=== PATIENT | male | born 1935 | race Caucasian/White ===

== ENCOUNTER 2017-03-24 18:29 | Emergency (ER) | payer MEDICARE, BC ==
--- NOTE | 2017-03-24 19:03 | Emergency Department Record ---
History of Present Illness - General Chief complaint: Weakness Stated complaint: TIA ? Time Seen by Provider: 03/24/17 18:35 Source: Patient, Family, RN notes reviewed Mode of Arrival: Wheelchair - History of Present Illness Initial comments: not cooperative and would not get out of the car and family worried could be a CVA. PMH dementia and atrial fib. Moving all four extremities to commands and neuro exam is neg except only oriented to person. Onset/Timin -: Hour(s) Location: Generalized Consistency: Constant Improves with: None Worsens with: None Associated Symptoms: Denies other symptoms - Related Data Home Medications Medication Instructions Recorded Confirmed Last Taken Lovastatin 40 mg PO DAILY 03/04/16 03/24/17 03/31/16 Digoxin 125 mcg PO DAILY 03/10/16 03/24/17 03/31/16 Docusate Sodium [Colace] 100 mg PO ASDIR 03/24/17 03/24/17 Unknown Esomeprazole Magnesium [Nexium] 40 mg PO DAILY 03/24/17 03/24/17 Unknown Memantine HCl [Namenda Xr] 28 mg PO QHS 03/24/17 03/24/17 Unknown Previous Rx's Medication Instructions Recorded Apixaban [Eliquis] 5 mg PO BID #60 tablet 03/31/16 Diltiazem HCl [Cardizem Cd] 180 mg PO DAILY #30 cap 03/31/16 Levothyroxine Sodium [Synthroid] 75 mcg PO DAILYTHY #30 tablet 03/31/16 Sertraline HCl [Zoloft] 50 mg PO DAILY #30 tablet 03/31/16 Sulfamethoxazole/Trimethoprim 1 each PO BID #20 tablet 03/24/17 [Bactrim Ds Tablet] Sulfamethoxazole/Trimethoprim 20 ml PO BID #400 ml 03/24/17 [Bactrim Susp] Allergies Allergy/AdvReac Type Severity Reaction Status Date / Time No Known Drug Allergies Allergy Verified 03/04/16 13:51 Travel Screening - Travel/Exposure Within Last 30 Days Have you traveled within the last 30 days?: No Review of Systems Reviewed: No additional complaints except as noted below Constitutional: Reports: As per HPI. Denies: Chills, Fever, Malaise, Night sweats, Weakness, Weight change Eyes: Reports: As per HPI. Denies: Eye discharge, Eye pain, Photophobia, Vision change ENT: Reports: As per HPI. Denies: Congestion, Dental pain, Ear pain, Epistaxis , Hearing loss, Throat pain Respiratory: Reports: As per HPI. Denies: Cough, Dyspnea, Hemoptysis, Stridor, Wheezes Cardiovascular: Reports: As per HPI. Denies: Arrhythmia, Chest pain, Dyspnea on exertion, Edema, Murmurs, Orthopnea, Palpitations, Paroxysmal nocturnal dyspnea, Rheumatic Fever, Syncope Endocrine: Reports: As per HPI. Denies: Fatigue, Heat or cold intolerance, Polydipsia, Polyuria Gastrointestinal: Reports: As per HPI. Denies: Abdominal pain, Constipation, Diarrhea, Hematemesis, Hematochezia, Melena, Nausea, Vomiting Genitourinary: Reports: As per HPI. Denies: Dysuria, Frequency, Hematuria, Incontinence, Retention, Testicular pain, Testicular mass, Urgency Musculoskeletal: Reports: As per HPI. Denies: Arthralgia, Back pain, Gout, Joint swelling, Myalgia, Neck pain Skin: Reports: As per HPI. Denies: Bruising, Change in color, Change in hair/ nails, Lesions, Pruritus, Rash Neurological: Reports: As per HPI. Denies: Abnormal gait, Confusion, Headache, Numbness, Paresthesias, Seizure, Tingling, Tremors, Vertigo, Weakness Psychiatric: Reports: As per HPI. Denies: Anxiety, Auditory hallucinations, Depression, Homicidal thoughts, Suicidal thoughts, Visual hallucinations Hematological/Lymphatic: Reports: As per HPI. Denies: Anemia, Blood Clots, Easy bleeding, Easy bruising, Swollen glands Past Medical History - SOCIAL HISTORY Smoking Status: Former smoker Alcohol Use: None Drug Use: None - RESPIRATORY Hx Respiratory Disorders: No - CARDIOVASCULAR Hx Cardio Disorders: Yes Hx Irregular Heartbeat: Yes (A-fib) Comment:: high cholesterol - NEURO Hx Neuro Disorders: Yes Hx Dementia: Yes (recently in past 6 months) - GI Hx GI Disorders: Yes Hx Reflux: Yes (Nexium helps) - Hx Genitourinary Disorders: Yes Hx Bladder Problem: Yes (occasional incont) - ENDOCRINE Hx Endocrine Disorders: Yes Hx Diabetes: Yes (borderline) - MUSCULOSKELETAL Hx Musculoskeletal Disorders: No Hx Arthritis: No - PSYCH Hx Psych Problems: Yes Hx Depression: Yes - HEMATOLOGY/ONCOLOGY Hx Hematology/Oncology Disorders: No Comment:: on Eliquis since TIA in February 2016 Family Medical History Any Significant Family History?: Yes Hx Cancer: Mother Physical Exam - General General Appearance: Alert, Oriented x3, Cooperative, No acute distress - Head Head exam: Normal inspection - Eye Eye exam: Normal appearance, PERRL Pupils: Normal accommodation - ENT ENT exam: Normal exam, Mucous membranes moist, Normal external ear exam, Normal orophraynx, TM's normal bilaterally Ear exam: Normal external inspection. negative: External canal tenderness Nasal Exam: Normal inspection. negative: Discharge, Sinus tenderness Mouth exam: Normal external inspection, Tongue normal Teeth exam: Normal inspection. negative: Dental caries Throat exam: Normal inspection. negative: Tonsillar erythema, Tonsillar exudate - Neck Neck exam: Normal inspection, Full ROM. negative: Tenderness - Respiratory Respiratory exam: Normal lung sounds bilaterally. negative: Respiratory distress - Cardiovascular Cardiovascular Exam: Regular rate, Normal rhythm, Normal heart sounds - GI/Abdominal GI/Abdominal exam: Soft, Normal bowel sounds. negative: Tenderness - Rectal Rectal exam: Deferred - exam: Deferred - Extremities Extremities exam: Normal inspection, Full ROM, Normal capillary refill. negative: Tenderness - Back Back exam: Reports: Normal inspection, Full ROM. Denies: Muscle spasm, Rash noted, Tenderness - Neurological Neurological exam: Alert, Normal gait, Oriented X3, Reflexes normal - Psychiatric Psychiatric exam: Normal affect, Normal mood - Skin Skin exam: Dry, Intact, Normal color, Warm Course Vital Signs 03/24/17 18:36 Temperature 97.4 F L Pulse Rate 111 H Respiratory 20 Rate Blood Pressure 126/81 Pulse Ox 96 - Reevaluation(s) Reevaluation #1: patient walking around without problems. 03/24/17 19:36 Medical Decision Making - Data Complexity MDM Data: Labs Ordered and/or Reviewed, X-Ray Ordered and/or Reviewed (CT Head no acute changes), EKG Ordered and/or Reviewed (Atrila fibrillation , no acute changes) - Lab Data Result diagrams: 03/24/17 18:50 03/24/17 18:50 Disposition Clinical Impression: Altered level of consciousness, Dehydration Dementia Qualifiers: Dementia type: Alzheimer's disease Alzheimer's disease onset: late-onset Dementia behavioral disturbance: without behavioral disturbance Qualified Code(s ): G30.1 - Alzheimer's disease with late onset UTI (urinary tract infection) Qualifiers: Urinary tract infection type: acute cystitis Hematuria presence: without hematuria Qualified Code(s): N30.00 - Acute cystitis without hematuria Disposition: Home, Self-Care Condition: (1) Good Instructions: Dehydration (ED) Additional Instructions: follow up with family in one week sooner if worse Prescriptions: Sulfamethoxazole/Trimethoprim [Bactrim Ds Tablet] 1 each PO BID #20 tablet Sulfamethoxazole/Trimethoprim [Bactrim Susp] 20 ml PO BID #400 ml Forms: Patient Portal Access Time of Disposition: 20:18 Quality - Quality Measures Quality Measures: N/A - Blood Pressure Screening Does Patient Have Any of the Following: No Blood Pressure Classification: Pre-Hypertensive BP Reading Systolic Measurement: 126 Diastolic Measurement: 81 Screening for High Blood Pressure: < Pre-Hypertensive BP, F/U Documented > [ G8950] Pre-Hypertensive Follow-up Interventions: Referral to alternative/primary care provider.
[2017-03-24 19:11] LABS: BASO % 0.2 % (0-6); EOS % 0.9 % (0-6); GRAN % 70.8 % (47-80); HEMATOCRIT 40.5 % (42.0-52.0); HEMOGLOBIN 13.7 gm/dl (14.0-18.0); LYMPH % 19.8 % (16-45); MEAN CELL VOLUME 91.4 fl (81-97); MEAN CORPUSCULAR HEMOGLOBIN 30.9 pg (27-33); MEAN CORPUSCULAR HGB CONC 33.8 g/dl (32-36); MEAN PLATELET VOLUME 9.5 fl (7.4-10.4); MONO % 8.3 % (0-9); PLATELET COUNT 195 K/uL (130-400); RED BLOOD COUNT 4.43 M/uL (4.40-5.70); RED CELL DISTRIBUTION WIDTH 13.4 % (11.5-14.5); WHITE BLOOD COUNT W/O DIFF 8.7 K/uL (4.2-12.2)
[2017-03-24 19:22] LABS: ALBUMIN 4.3 gm/dL (3.5-5.0); ALKALINE PHOSPHATASE 55 U/L (38-126); ALT/SGPT 39 U/L (21-72); ANION GAP 8.2 (7-16); AST/SGOT 20 U/L (17-59); BILIRUBIN,TOTAL 1.17 mg/dL (0.2-1.3); BLOOD UREA NITROGEN 15 mg/dL (9-20); CARBON DIOXIDE 25.8 mmol/L (22-30); EST GLOMERULAR FILTRATION RATE > 60 ml/min; GLUCOSE,RANDOM 217 mg/dL (70-110); TOTAL PROTEIN 6.9 gm/dL (6.3-8.2)
[2017-03-24 19:23] LABS: ACETAMINOPHEN < 10.0 ug/mL (10.0-30.0); SALICYLATE < 1.0 mg/dL (2.8-20.0)
[2017-03-24 19:31] LABS: URINE APPEARANCE CLEAR; URINE BILIRUBIN SMALL (NEGATIVE); URINE BLOOD SMALL (NEGATIVE); URINE COLOR ORANGE; URINE GLUCOSE (UA) NEGATIVE (NEGATIVE); URINE KETONE TRACE (NEGATIVE); URINE LEUKOCYTE ESTERASE MODERATE (NEGATIVE); URINE NITRITE NEGATIVE (NEGATIVE); URINE PROTEIN TRACE (NEGATIVE)
[2017-03-24] MEDS: 0.9 % SODIUM CHLORIDE 1000ML 1,000 ML IV ONE (19:35)
[2017-03-24 19:37] LABS: AMPHETAMINE SCREEN URINE NOT DETECTED; BARBITURATE SCREEN URINE NOT DETECTED; BENZODIAZEPINE SCREEN URINE NOT DETECTED; COCAINE SCREEN URINE NOT DETECTED; METHADONE SCREEN URINE DETECTED; METHAMPHETAMINE SCREEN NOT DETECTED; OPIATE SCREEN URINE NOT DETECTED; OXYCODONE SCREEN URINE NOT DETECTED; PHENCYCLIDINE SCREEN URINE NOT DETECTED; PROPOXYPHENE SCREEN URINE NOT DETECTED; THC SCREEN URINE NOT DETECTED; TRICYCLIC ANTIDEPRESSANT SCRN NOT DETECTED
[2017-03-24 19:42] LABS: URINE EPITHELIAL CELLS 0 - 2 (FEW); URINE WBC 16 - 20 (0-2/hpf)
[2017-03-24 19:43] LABS: URINE BACTERIA FEW
[2017-03-24 19:45] LABS: URINE MUCUS MODERATE
[2017-03-24] MEDS ORDERED: ALBUTEROL SULFATE (0.083%) 2.5 MG/3 ML NEB INH ONE (20:01)
[2017-03-24] MEDS ORDERED: TMP/SMZ 160MG/800MG TAB PO ONE (20:19)
[2017-03-24] MEDS: SULFAMETHOX/TRIM SUSP 800/160MG PER 20 ML PO ONE (20:57)
--- NOTE | 2017-03-26 09:50 | CT SCAN REPORT ---
EXAM: EMERGENCY HEAD CT HISTORY: WEAKNESS TODAY, SPEECH WORSE WELL. TECHNIQUE: Axial CT scan of the head was performed without IV contrast. Comparison: Head CT dated 03/04/16. FINDINGS: No definite acute intracranial hemorrhage identified. No focal mass effect or midline shift apparent. Moderate generalized atrophy with chronic appearing deep white matter changes as before, nonspecific, but likely representing some chronic small vessel deep white matter ischemic disease. No definite acute infarct or intracranial mass lesion is seen. Moderate membrane thickening in the ethmoids and inferiorly in the frontal sinuses again noted. No depressed calvarial fracture is evident. IMPRESSION: 1. GENERALIZED ATROPHY WITH CHRONIC APPEARING DEEP WHITE MATTER CHANGES BEFORE. 2. NO DEFINITE ACUTE INTRACRANIAL HEMORRHAGE OR FOCAL MASS EFFECT IDENTIFIED. 3. MEMBRANE THICKENING IN THE ETHMOIDS AND INFERIORLY IN THE FRONTAL SINUSES BEFORE. JOB NUMBER: [id number] [facility], [place]
== END 2017-03-24 21:01 | disposition home or self-care (01) ==
LOC: ER 18:29
DX: E86.0 Dehydration (principal); N30.00 Acute cystitis without hematuria; I48.91 Unspecified atrial fibrillation; R53.1 Weakness; G30.1 Alzheimer's disease with late onset; Z79.899 Other long term (current) drug therapy; Z87.891 Personal history of nicotine dependence
CPT/HCPCS: 99284 ×2; 96360; 85025; 85730; 80076; 80048; 81001; 80305; 80162; 70450; 93005; 93010; G0480 ×3; 80320; 80329

== ENCOUNTER 2017-06-01 19:50 | Emergency (ER) | payer MEDICARE, BC ==
[2017-06-01] MEDS ORDERED: ONDANSETRON HCL IV 4 MG/2 ML VIAL IVP ONE (20:13)
[2017-06-01] MEDS ORDERED: MORPHINE SULFATE 5 MG/ML PFS IVP ONE (20:13)
[2017-06-01] MEDS ORDERED: 0.9 % SODIUM CHLORIDE 1000ML 1,000 ML IV SCH (20:15)
--- NOTE | 2017-06-01 20:15 | Emergency Department Record ---
History of Present Illness - General Chief Complaint: Abdominal Pain Stated Complaint: LRQ ABDOMINAL PAIN,LOWER BACK Time Seen by Provider: 06/01/17 20:12 Source: Patient, Family (daughter) Mode of Arrival: Ambulatory Limitations: Altered mental status (dementia) - History of Present Illness Initial Comments: 82 you male with history of dementia presents to ED for evaluation of pain to the RLQ for approximately 3 hours, reports that his pain symptoms have been constant. Daughter at the bedside provides history due to the patient's dementia, denies health problems other than atrial fibrillation and anticoagulation with Eliquis. Daughter denies previous abdominal surgery. Daughter denies vomiting symptoms, reports stools have been normal. MD Complaint: Abdominal pain Onset/Timin -: Hour(s) Location: RLQ Radiation: Back Severity scale (1-10): 7 Consistency: Constant Associated Symptoms: Denies other symptoms - Related Data Home Medications Medication Instructions Recorded Confirmed Last Taken Donepezil HCl [Aricept] 10 mg PO DAILY 06/01/17 06/01/17 Unknown Previous Rx's Medication Instructions Recorded Apixaban [Eliquis] 5 mg PO BID #60 tablet 03/31/16 Diltiazem HCl [Cardizem Cd] 180 mg PO DAILY #30 cap 03/31/16 Levothyroxine Sodium [Synthroid] 75 mcg PO DAILYTHY #30 tablet 03/31/16 Sertraline HCl [Zoloft] 50 mg PO DAILY #30 tablet 03/31/16 Allergies Allergy/AdvReac Type Severity Reaction Status Date / Time No Known Drug Allergies Allergy Verified 03/04/16 13:51 Travel Screening - Travel/Exposure Within Last 30 Days Have you traveled within the last 30 days?: No - Travel Symptoms Symptom Screening: None Review of Systems ROS unobtainable: Due to mental status Gastrointestinal: Reports: Abdominal pain. Denies: Constipation, Vomiting Past Medical History - SOCIAL HISTORY Smoking Status: Former smoker - RESPIRATORY Hx Respiratory Disorders: No - CARDIOVASCULAR Hx Cardio Disorders: Yes Hx Irregular Heartbeat: Yes (A-fib) Comment:: high cholesterol - NEURO Hx Neuro Disorders: Yes Hx Dementia: Yes (recently in past 6 months) - GI Hx GI Disorders: Yes Hx Reflux: Yes (Nexium helps) - Hx Genitourinary Disorders: Yes Hx Bladder Problem: Yes (occasional incont) - ENDOCRINE Hx Endocrine Disorders: No - MUSCULOSKELETAL Hx Musculoskeletal Disorders: No Hx Arthritis: No - PSYCH Hx Psych Problems: Yes Hx Depression: Yes - HEMATOLOGY/ONCOLOGY Hx Hematology/Oncology Disorders: No Comment:: on Eliquis since TIA in February 2016 Family Medical History Any Significant Family History?: Yes Hx Cancer: Mother Physical Exam - General General Appearance: Alert, Cooperative, Mild distress Limitations: Altered mental status - Head Head exam: Atraumatic, Normocephalic, Normal inspection Head exam detail: negative: Abrasion, Contusion, Gatica's sign, General tenderness, Hematoma, Laceration - Eye Eye exam: Normal appearance. negative: Conjunctival injection, Periorbital swelling, Periorbital tenderness, Scleral icterus - ENT Ear exam: negative: Auricular hematoma, Auricular trauma Nasal Exam: negative: Active bleeding, Discharge, Dried blood, Foreign body Mouth exam: negative: Drooling, Laceration, Muffled voice, Tongue elevation - Neck Neck exam: Normal inspection. negative: Meningismus, Tenderness - Respiratory Respiratory exam: Normal lung sounds bilaterally. negative: Rales, Respiratory distress, Rhonchi, Stridor - Cardiovascular Cardiovascular Exam: Normal heart sounds, Irregular rhythm - GI/Abdominal GI/Abdominal exam: Soft, Tenderness (Mild-moderate TTP RLQ, no rebound or guarding present). negative: Rebound, Rigid - Rectal Rectal exam: Deferred - exam: negative: Circumcision, Scrotal swelling, Testicular tenderness - Extremities Extremities exam: Normal inspection. negative: Calf tenderness, Pedal edema, Tenderness - Back Back exam: Denies: CVA tenderness (R), CVA tenderness (L) - Neurological Neurological exam: Alert, Normal gait, Oriented X3 - Psychiatric Psychiatric exam: Normal affect, Normal mood - Skin Skin exam: Normal color. negative: Abrasion Type of lesion: negative: abrasion Course Vital Signs 06/01/17 20:04 Pulse Rate [ 69 Pulse Ox Probe] Respiratory 20 Rate Blood Pressure 140/78 [Left Arm] Pulse Ox 99 - Reevaluation(s) Reevaluation #1: 06/01/17 20:37 EKG: Atrial Fibrillation Normal axis, irregular R-R T wave inversions V3-V6, unchanged from 03/24/17. Reevaluation #2: 06/01/17 20:41 Labs reviewed and are grossly unremarkable for an acute process. UA pending. Reevaluation #3: 06/01/17 21:31 CT Abdomen and Pelvis: No acute process identified, chronic changes present. Patient and his daughter were updated on all results, patient continues to be resting comfortably on examination. I explained the importance of close observation at home for the next 12-24 hours and return for the development of any new symptoms or worsening of his symptoms. Patient reports his pain to be mild currently, and appears stable for discharge at this time. Medical Decision Making - Lab Data Result diagrams: 06/01/17 20:19 06/01/17 20:19 Disposition Disposition: Discharge Clinical Impression: Abdominal pain Qualifiers: Abdominal location: right lower quadrant Qualified Code(s): R10.31 - Right lower quadrant pain Dementia Qualifiers: Dementia type: vascular dementia Dementia behavioral disturbance: without behavioral disturbance Qualified Code(s): F01.50 - Vascular dementia without behavioral disturbance Disposition: Home, Self-Care Condition: (2) Stable Instructions: Abdominal Pain (ED) Additional Instructions: Return to ED if your symptoms worsen or if you have any concerns. Follow-up with your family doctor in 3-5 days as directed. Forms: Patient Portal Access Time of Disposition: 21:32 Quality - Quality Measures Quality Measures: N/A - Blood Pressure Screening Does Patient Have Any of the Following: No Blood Pressure Classification: Pre-Hypertensive BP Reading Systolic Measurement: 132 Diastolic Measurement: 73 Screening for High Blood Pressure: < Pre-Hypertensive BP, F/U Documented > [ G8950] Pre-Hypertensive Follow-up Interventions: Referral to alternative/primary care provider.
[2017-06-01 20:25] LABS: BASO % 0.6 % (0-6); EOS % 3.3 % (0-6); GRAN % 55.6 % (47-80); HEMATOCRIT 43.6 % (42.0-52.0); HEMOGLOBIN 14.5 gm/dl (14.0-18.0); LYMPH % 32.5 % (16-45); MEAN CELL VOLUME 90.8 fl (81-97); MEAN CORPUSCULAR HEMOGLOBIN 30.2 pg (27-33); MEAN CORPUSCULAR HGB CONC 33.3 g/dl (32-36); MEAN PLATELET VOLUME 8.9 fl (7.4-10.4); PLATELET COUNT 225 K/uL (130-400); RED CELL DISTRIBUTION WIDTH 13.2 % (11.5-14.5)
[2017-06-01 20:40] LABS: ALB/GLOB RATIO 1.6 (1.1-1.8); ALBUMIN 4.2 g/dL (4.0-5.0); ALKALINE PHOSPHATASE 59 U/L (40-129); ALT/SGPT 15 U/L (<41); AST/SGOT 16 U/L (10.0-50.0); BLOOD UREA NITROGEN 10 mg/dL (8-23); CREATININE 0.8 mg/dL (0.7-1.2); EST GLOMERULAR FILTRATION RATE > 60 mL/min; GLUCOSE,RANDOM 155 mg/dL (74-109); LIPASE 39 U/L (13-60); TOTAL PROTEIN 6.9 g/dL (6.6-8.7)
[2017-06-01 21:33] LABS: URINE APPEARANCE CLEAR; URINE BILIRUBIN NEGATIVE (NEGATIVE); URINE BLOOD TRACE-I (NEGATIVE); URINE COLOR YELLOW; URINE GLUCOSE (UA) NEGATIVE (NEGATIVE); URINE KETONE NEGATIVE (NEGATIVE); URINE LEUKOCYTE ESTERASE NEGATIVE (NEGATIVE); URINE NITRITE NEGATIVE (NEGATIVE); URINE PROTEIN NEGATIVE (NEGATIVE); URINE UROBILINOGEN 0.2 E.U./dL (0.20 - 1.00)
[2017-06-01 21:36] LABS: URINE BACTERIA NONE SEEN; URINE EPITHELIAL CELLS 0 - 2 (FEW); URINE RBC 0 - 2 (NONE SEEN); URINE WBC 0 - 2 (0-2/hpf)
--- NOTE | 2017-06-03 10:39 | CT SCAN REPORT ---
EXAM: CT SCAN ABDOMEN/PELVIS W CONTRAST HISTORY: ACUTE RIGHT LOWER QUADRANT ABDOMINAL PAIN FOR EIGHT HOURS. COMPARISON: None. TECHNIQUE: Contiguous axial images from the lung bases to the symphysis pubis were obtained after the uneventful intravenous administration of 100 mL of Omnipaque-300. Oral contrast was also utilized. FINDINGS: A 2 mm calcified granuloma in the right middle lobe. Linear scarring in the lingula. Minimal subpleural reticulation at both lung bases. The liver and spleen are unremarkable. Unilocular cyst lower pole left kidney measures 15 mm. Unilocular cysts in the interpolar region of the right kidney, the largest measuring 2.6 cm. The adrenals and pancreas are unremarkable. Gallbladder is normal. Visualized loops of small and large bowel are of normal caliber with no obvious wall thickening. Normal appendix. Small to moderate fecal material throughout the colon. Mild diverticulosis of the descending colon with no evidence of diverticulitis. Moderate aortoiliac calcification of the abdominal aorta without aneurysm. Mesenteric vessels are patent. No free intraperitoneal fluid or adenopathy. Prostate gland is top-normal in size with central calcifications. Fat-containing inguinal hernias. No free intraperitoneal fluid or adenopathy. No lytic or blastic lesion. There may be two nonobstructing 2 mm calculi in the mid right kidney. IMPRESSION: 1. NO ACUTE PROCESS OF THE ABDOMEN OR PELVIS WITH NORMAL APPENDIX. 2. BENIGN BOSNIAK TYPE I RENAL CYSTS. 3. TWO POSSIBLE NONOBSTRUCTING INTRARENAL CALCULI ON THE RIGHT. 4. SMALL FAT-CONTAINING INGUINAL HERNIAS. JOB NUMBER: [id number] [facility]
== END 2017-06-01 21:52 | disposition home or self-care (01) ==
LOC: ER 19:50
DX: R10.31 Right lower quadrant pain (principal); F01.50 Vascular dementia, unspecified severity, without behavioral disturbance, psychotic disturbance, mood disturbance, and anxiety; I48.91 Unspecified atrial fibrillation; Z79.01 Long term (current) use of anticoagulants; Z87.891 Personal history of nicotine dependence
CPT/HCPCS: 99284 ×2; 96374; 96375; 96361; 83690; 85025; 80053; 81001; 80162; 74177; 93005; 93010; Q9967; J2405; J2270; J7030

== ENCOUNTER 2018-02-24 15:16 | Emergency (ER) | payer MEDICARE, BC ==
--- NOTE | 2018-02-24 16:42 | Emergency Department Record ---
History of Present Illness - General Chief complaint: Extremity Problem Stated complaint: FALL, LT ELBOW LAC Time Seen by Provider: 02/24/18 16:36 Source: Patient, RN notes reviewed Mode of Arrival: Ambulatory - History of Present Illness Initial comments: 20 cm laceration of the left forearm, fell at home and he has dementia Onset/Timin -: Minutes(s) Location: Left, Elbow History of Same: No (usually steady) Radiation: None Severity scale (1-10): 4 Quality: Aching - Related Data Home Medications Medication Instructions Recorded Confirmed Last Taken Omeprazole 20 mg PO DAILY 02/24/18 02/24/18 1 Day Ago ~02/23/18 Sertraline HCl [Zoloft] 100 mg PO DAILY 02/24/18 02/24/18 1 Day Ago ~02/23/18 Previous Rx's Medication Instructions Recorded Apixaban [Eliquis] 5 mg PO BID #60 tablet 03/31/16 Diltiazem HCl [Cardizem Cd] 180 mg PO DAILY #30 cap 03/31/16 Levothyroxine Sodium [Synthroid] 75 mcg PO DAILYTHY #30 tablet 03/31/16 Allergies Allergy/AdvReac Type Severity Reaction Status Date / Time No Known Drug Allergies Allergy Verified 03/04/16 13:51 Travel Screening - Travel/Exposure Within Last 30 Days Have you traveled within the last 30 days?: No - Travel/Exposure Within Last Year Have you traveled outside the [place] in the last year?: No - Additonal Travel Details Have you been exposed to anyone with a communicable illness?: No - Travel Symptoms Symptom Screening: None Review of Systems Reviewed: No additional complaints except as noted below Constitutional: Reports: As per HPI. Denies: Chills, Fever, Malaise, Night sweats, Weakness, Weight change Eyes: Reports: As per HPI. Denies: Eye discharge, Eye pain, Photophobia, Vision change ENT: Reports: As per HPI. Denies: Congestion, Dental pain, Ear pain, Epistaxis , Hearing loss, Throat pain Respiratory: Reports: As per HPI. Denies: Cough, Dyspnea, Hemoptysis, Stridor, Wheezes Cardiovascular: Reports: As per HPI. Denies: Arrhythmia, Chest pain, Dyspnea on exertion, Edema, Murmurs, Orthopnea, Palpitations, Paroxysmal nocturnal dyspnea, Rheumatic Fever, Syncope Endocrine: Reports: As per HPI. Denies: Fatigue, Heat or cold intolerance, Polydipsia, Polyuria Gastrointestinal: Reports: As per HPI. Denies: Abdominal pain, Constipation, Diarrhea, Hematemesis, Hematochezia, Melena, Nausea, Vomiting Genitourinary: Reports: As per HPI. Denies: Dysuria, Frequency, Hematuria, Incontinence, Retention, Testicular pain, Testicular mass, Urgency Musculoskeletal: Reports: As per HPI. Denies: Arthralgia, Back pain, Gout, Joint swelling, Myalgia, Neck pain Skin: Reports: As per HPI. Denies: Bruising, Change in color, Change in hair/ nails, Lesions, Pruritus, Rash Neurological: Reports: As per HPI. Denies: Abnormal gait, Confusion, Headache, Numbness, Paresthesias, Seizure, Tingling, Tremors, Vertigo, Weakness Psychiatric: Reports: As per HPI. Denies: Anxiety, Auditory hallucinations, Depression, Homicidal thoughts, Suicidal thoughts, Visual hallucinations Hematological/Lymphatic: Reports: As per HPI. Denies: Anemia, Blood Clots, Easy bleeding, Easy bruising, Swollen glands Past Medical History - SOCIAL HISTORY Smoking Status: Former smoker Alcohol Use: None Drug Use: None - RESPIRATORY Hx Respiratory Disorders: No - CARDIOVASCULAR Hx Cardio Disorders: Yes Hx Irregular Heartbeat: Yes (A-fib) Comment:: high cholesterol - NEURO Hx Neuro Disorders: Yes Hx Dementia: Yes (recently in past 6 months) - GI Hx GI Disorders: Yes Hx Reflux: Yes (Nexium helps) - Hx Genitourinary Disorders: Yes Hx Bladder Problem: Yes (occasional incont) - ENDOCRINE Hx Endocrine Disorders: No Hx Diabetes: Yes (borderline) - MUSCULOSKELETAL Hx Musculoskeletal Disorders: No Hx Arthritis: No - PSYCH Hx Psych Problems: Yes Hx Depression: Yes - HEMATOLOGY/ONCOLOGY Hx Hematology/Oncology Disorders: No Comment:: on Eliquis since TIA in February 2016 Family Medical History Any Significant Family History?: Yes Hx Cancer: Mother Physical Exam - General General Appearance: Alert, Oriented x3, Cooperative, No acute distress - Head Head exam: Normal inspection - Eye Eye exam: Normal appearance, PERRL Pupils: Normal accommodation - ENT ENT exam: Normal exam, Mucous membranes moist, Normal external ear exam, Normal orophraynx, TM's normal bilaterally Ear exam: Normal external inspection. negative: External canal tenderness Nasal Exam: Normal inspection. negative: Discharge, Sinus tenderness Mouth exam: Normal external inspection, Tongue normal Teeth exam: Normal inspection. negative: Dental caries Throat exam: Normal inspection. negative: Tonsillar erythema, Tonsillar exudate - Neck Neck exam: Normal inspection, Full ROM. negative: Tenderness - Respiratory Respiratory exam: Normal lung sounds bilaterally. negative: Respiratory distress - Cardiovascular Cardiovascular Exam: Regular rate, Normal rhythm, Normal heart sounds - GI/Abdominal GI/Abdominal exam: Soft, Normal bowel sounds. negative: Tenderness - Rectal Rectal exam: Deferred - exam: Deferred - Extremities Extremities exam: Normal inspection, Full ROM, Normal capillary refill. negative: Tenderness - Back Back exam: Reports: Normal inspection, Full ROM. Denies: Muscle spasm, Rash noted, Tenderness - Neurological Neurological exam: Alert, Normal gait, Oriented X3, Reflexes normal - Psychiatric Psychiatric exam: Normal affect, Normal mood - Skin Skin exam: Dry, Intact, Normal color, Warm Type of lesion: Laceration Course Vital Signs 02/24/18 15:34 Temperature 97.5 F L Pulse Rate [ 74 Pulse Ox Probe] Respiratory 17 Rate Blood Pressure 114/72 [Left Arm] Pulse Ox 99 - Reevaluation(s) Reevaluation #1: 1% lidocaine of the left elbow and he has a large flap laceration. No other injuries Cleaned with Shurclens and irrigated ,No FB, neurovascular intact, closed with 4.0 ethilon time 13 sutures 02/24/18 16:38 02/24/18 16:40 Disposition Clinical Impression: Laceration Disposition: Home, Self-Care Condition: (1) Good Instructions: Laceration (ED) Additional Instructions: remove sutures in 12 days Time of Disposition: 16:42 Quality - Quality Measures Quality Measures: N/A - Blood Pressure Screening Does Patient Have Any of the Following: No Blood Pressure Classification: Normal BP Reading Systolic Measurement: 114 Diastolic Measurement: 72 Screening for High Blood Pressure: < Normal BP, F/U Not Required > [G8783]
== END 2018-02-24 16:54 | disposition home or self-care (01) ==
LOC: ER 15:16
DX: S51.012A Laceration without foreign body of left elbow, initial encounter (principal); W07.XXXA Fall from chair, initial encounter; I48.91 Unspecified atrial fibrillation; F03.90 Unspecified dementia, unspecified severity, without behavioral disturbance, psychotic disturbance, mood disturbance, and anxiety; Z79.01 Long term (current) use of anticoagulants; Z87.891 Personal history of nicotine dependence; Y92.009 Unspecified place in unspecified non-institutional (private) residence as the place of occurrence of the external cause
CPT/HCPCS: 12005; 99283

== ENCOUNTER 2018-03-09 14:13 | Emergency (ER) | payer MEDICARE, BC ==
--- NOTE | 2018-03-09 14:46 | Emergency Department Record ---
History of Present Illness - General Chief Complaint: Suture removal Stated Complaint: SUTURES REMOVED Time Seen by Provider: 03/09/18 14:30 Source: Patient Limitations: No limitations - History of Present Illness Complaint: Suture/staple removal Returns Today for: Staple/stitch removal Symptoms Since Prior Visit: No new symptoms - Related Data Previous Rx's Medication Instructions Recorded Apixaban [Eliquis] 5 mg PO BID #60 tablet 03/31/16 Diltiazem HCl [Cardizem Cd] 180 mg PO DAILY #30 cap 03/31/16 Levothyroxine Sodium [Synthroid] 75 mcg PO DAILYTHY #30 tablet 03/31/16 Allergies Allergy/AdvReac Type Severity Reaction Status Date / Time No Known Drug Allergies Allergy Verified 03/04/16 13:51 Review of Systems Reviewed: No additional complaints except as noted below Constitutional: Reports: As per HPI. Denies: Chills, Fever, Malaise, Night sweats, Weakness, Weight change Eyes: Reports: As per HPI. Denies: Eye discharge, Eye pain, Photophobia, Vision change ENT: Reports: As per HPI. Denies: Congestion, Dental pain, Ear pain, Epistaxis , Hearing loss, Throat pain Respiratory: Reports: As per HPI. Denies: Cough, Dyspnea, Hemoptysis, Stridor, Wheezes Cardiovascular: Reports: As per HPI. Denies: Arrhythmia, Chest pain, Dyspnea on exertion, Edema, Murmurs, Orthopnea, Palpitations, Paroxysmal nocturnal dyspnea, Rheumatic Fever, Syncope Endocrine: Reports: As per HPI. Denies: Fatigue, Heat or cold intolerance, Polydipsia, Polyuria Gastrointestinal: Reports: As per HPI. Denies: Abdominal pain, Constipation, Diarrhea, Hematemesis, Hematochezia, Melena, Nausea, Vomiting Genitourinary: Reports: As per HPI. Denies: Dysuria, Frequency, Hematuria, Incontinence, Retention, Testicular pain, Testicular mass, Urgency Musculoskeletal: Reports: As per HPI. Denies: Arthralgia, Back pain, Gout, Joint swelling, Myalgia, Neck pain Skin: Reports: As per HPI. Denies: Bruising, Change in color, Change in hair/ nails, Lesions, Pruritus, Rash Neurological: Reports: As per HPI. Denies: Abnormal gait, Confusion, Headache, Numbness, Paresthesias, Seizure, Tingling, Tremors, Vertigo, Weakness Psychiatric: Reports: As per HPI. Denies: Anxiety, Auditory hallucinations, Depression, Homicidal thoughts, Suicidal thoughts, Visual hallucinations Hematological/Lymphatic: Reports: As per HPI. Denies: Anemia, Blood Clots, Easy bleeding, Easy bruising, Swollen glands Past Medical History - SOCIAL HISTORY Smoking Status: Former smoker Drug Use: None - RESPIRATORY Hx Respiratory Disorders: No - CARDIOVASCULAR Hx Cardio Disorders: Yes Hx Irregular Heartbeat: Yes (A-fib) Comment:: high cholesterol - NEURO Hx Neuro Disorders: Yes Hx Dementia: Yes (recently in past 6 months) - GI Hx GI Disorders: Yes Hx Reflux: Yes (Nexium helps) - Hx Genitourinary Disorders: Yes Hx Bladder Problem: Yes (occasional incont) - ENDOCRINE Hx Endocrine Disorders: No Hx Diabetes: Yes (borderline) - MUSCULOSKELETAL Hx Musculoskeletal Disorders: No Hx Arthritis: No - PSYCH Hx Psych Problems: Yes Hx Depression: Yes - HEMATOLOGY/ONCOLOGY Hx Hematology/Oncology Disorders: No Comment:: on Eliquis since TIA in February 2016 Family Medical History Hx Cancer: Mother Physical Exam - General General Appearance: Alert, Cooperative, No acute distress - Head Head exam: Normal inspection - Eye Eye exam: Normal appearance, PERRL, EOMI Pupils: Normal accommodation - ENT ENT exam: Normal exam, Mucous membranes moist, Normal external ear exam, Normal orophraynx Ear exam: Normal external inspection. negative: External canal tenderness Nasal Exam: Normal inspection. negative: Discharge, Sinus tenderness Mouth exam: Normal external inspection, Tongue normal Teeth exam: Normal inspection. negative: Dental caries Throat exam: Normal inspection. negative: Tonsillar erythema, Tonsillar exudate - Neck Neck exam: Normal inspection, Full ROM. negative: Tenderness - Respiratory Respiratory exam: negative: Respiratory distress - GI/Abdominal GI/Abdominal exam: Soft, Normal bowel sounds. negative: Tenderness - Rectal Rectal exam: Deferred - exam: Deferred - Extremities Extremities exam: Normal inspection, Full ROM, Normal capillary refill. negative: Tenderness - Back Back exam: Reports: Normal inspection, Full ROM. Denies: Muscle spasm, Rash noted, Tenderness - Neurological Neurological exam: Alert, CN II-XII intact, Normal gait - Psychiatric Psychiatric exam: Normal affect, Normal mood - Skin Skin exam: Dry, Intact, Normal color, Warm Type of lesion: Laceration (well healed) Distribution of rash: LUE Disposition Disposition: Discharge Clinical Impression: Visit for suture removal Disposition: Home, Self-Care Condition: (1) Good Instructions: Stitches Removal (ED) Additional Instructions: follow up with family doctor. return sooner if worse Forms: Patient Portal Access Quality - Quality Measures Quality Measures: N/A - Blood Pressure Screening Does Patient Have Any of the Following: No Blood Pressure Classification: Normal BP Reading Systolic Measurement: 117 Diastolic Measurement: 73 Screening for High Blood Pressure: < Normal BP, F/U Not Required > [G8783]
== END 2018-03-09 14:59 | disposition home or self-care (01) ==
LOC: ER 14:13
DX: Z48.02 Encounter for removal of sutures (principal); Z87.891 Personal history of nicotine dependence

== ENCOUNTER 2018-12-12 12:52 | Emergency (ER) | payer MEDICARE, BC ==
--- NOTE | 2018-12-12 14:20 | Emergency Department Record ---
History of Present Illness - General Chief complaint: Weakness Stated complaint: SHALLOW BREATHING, WONT EAT,TIA YESTERDAY Time Seen by Provider: 12/12/18 13:47 Source: Family Mode of Arrival: Wheelchair Limitations: No limitations - History of Present Illness Initial comments: The patient is here due to not feeling well for about 2 weeks. He has a hx of end stage Dementia and has been worsening over the last 2 weeks. He has not walked in over a week and now is not conversing and not eating, drinking, or taking his medicines. Now the patient is clearly not acting normally and has not been moving his L side for about a month. The patient has seen his PCP in the last 2 weeks and they were supposed to have hospice set up for him but that has not happened yet. The family who takes care of him is concerned the patient may be dehydrated possibly. The patient is a DNR and basically comfort measures only per family. MD Complaint: Generalized weakness, Lack of energy Onset/Timin -: Week(s) - Johnston Coma Scale Eye Response: (4) Open spontaneously Motor Response: (6) Obeys commands Verbal Response: (5) Oriented Roxana Total: 15 - Related Data Home Medications Medication Instructions Recorded Confirmed Last Taken Diltiazem HCl [Cardizem Cd] 120 mg PO DAILY 12/12/18 12/12/18 Unknown Levothyroxine Sodium [Synthroid] 88 mcg PO DAILYTHY 12/12/18 12/12/18 Unknown Allergies Allergy/AdvReac Type Severity Reaction Status Date / Time No Known Drug Allergies Allergy Verified 12/12/18 13:41 Travel Screening - Travel/Exposure Within Last 30 Days Have you traveled within the last 30 days?: No - Travel/Exposure Within Last Year Have you traveled outside the [place] in the last year?: No - Additonal Travel Details Have you been exposed to anyone with a communicable illness?: No - Travel Symptoms Symptom Screening: None Review of Systems Constitutional: Reports: Malaise. Denies: Chills, Fever Eyes: Denies: Eye discharge ENT: Denies: Congestion Respiratory: Denies: Cough, Dyspnea Cardiovascular: Denies: Arrhythmia, Chest pain Endocrine: Reports: Fatigue Gastrointestinal: Denies: Nausea Genitourinary: Denies: Dysuria Musculoskeletal: Denies: Arthralgia Neurological: Denies: Abnormal gait Past Medical History - SOCIAL HISTORY Smoking Status: Former smoker Alcohol Use: None Drug Use: None - RESPIRATORY Hx Respiratory Disorders: No - CARDIOVASCULAR Hx Cardio Disorders: Yes Hx Irregular Heartbeat: Yes (A-fib) Comment:: high cholesterol - NEURO Hx Neuro Disorders: Yes Hx Dementia: Yes (recently in past 6 months) - GI Hx GI Disorders: Yes Hx Reflux: Yes (Nexium helps) - Hx Genitourinary Disorders: Yes Hx Bladder Problem: Yes (occasional incont) - ENDOCRINE Hx Endocrine Disorders: No 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 ) - Head Head exam: Atraumatic - Eye Eye exam: Normal appearance, PERRL - Neck Neck exam: Normal inspection, Full ROM. negative: Tenderness - Respiratory Respiratory exam: Normal lung sounds bilaterally. negative: Respiratory distress - Cardiovascular Cardiovascular Exam: Irregular rhythm, Tachycardia - GI/Abdominal GI/Abdominal exam: Soft, Normal bowel sounds. negative: Tenderness - Neurological Neurological exam: Abnormal gait, Motor sensory deficit (The patient does not seem to be moving his L side.). negative: Alert, Normal gait Course Vital Signs 12/12/18 13:22 Pulse Rate 124 H Respiratory 18 Rate Blood Pressure 107/96 Pulse Ox 85 L - Reevaluation(s) Reevaluation #1: I did discuss the issues with the family and they do not want any aggressive treatment for the patient. He does seem to be at the end of his life and family does understand that. They would like the patient to at home and would like Hospice contacted. 12/12/18 14:20 Reevaluation #2: I again had a long discussion with family regarding the patient's condition. He clearly does not seem to be in pain and clearly seems to be at the end of his life. We did discuss the lab results and xray and family is aware of the acute changes today. They again would like to take the patient home and would like him to at home. We will plan to facilitate hospice care in the morning and are unable to do so today due to no Assistant Guest Services Manager here today. 12/12/18 15:04 Medical Decision Making - Data Complexity MDM Data: Labs Ordered and/or Reviewed, X-Ray Ordered and/or Reviewed, EKG Ordered and/or Reviewed - Lab Data Result diagrams: 12/12/18 14:23 12/12/18 14:23 - EKG Data -: EKG Interpreted by Me (The patient's HR is around [address] changes are all chronic.) - Radiology Data Radiology results: Report reviewed (CXR: Bilateral effusion with possible bibasilar infiltrates.) Disposition Disposition: Discharge Clinical Impression: Dementia Qualifiers: Dementia type: unspecified type Dementia behavioral disturbance: without behavioral disturbance Qualified Code(s): F03.90 - Unspecified dementia without behavioral disturbance Disposition: Home, Self-Care Condition: (2) Stable Instructions: Weakness (ED) Additional Instructions: Please contact Hospice tomorrow for further instructions. Forms: Patient Portal Access Time of Disposition: 15:07 Quality - Quality Measures Quality Measures: N/A - Blood Pressure Screening View Details: Yes Does Patient Have Any of the Following: No Blood Pressure Classification: Hypertensive Reading Systolic Measurement: 107 Diastolic Measurement: 96 Screening for High Blood Pressure: < First Hypertensive BP, F/U Documented > [ G8950] First Hypertensive Follow-up Interventions: Referral to alternative/primary care provider.
[2018-12-12 14:27] LABS: HEMATOCRIT 42.8 % (42.0-52.0); HEMOGLOBIN 14.1 gm/dl (14.0-18.0); MEAN CELL VOLUME 93.2 fl (81-97); MEAN CORPUSCULAR HEMOGLOBIN 30.7 pg (27-33); MEAN CORPUSCULAR HGB CONC 32.9 g/dl (32-36); MEAN PLATELET VOLUME 9.5 fl (7.4-10.4); PLATELET COUNT 222 K/uL (130-400); RED BLOOD COUNT 4.59 M/uL (4.40-5.70); RED CELL DISTRIBUTION WIDTH 14.5 % (11.5-14.5); WHITE BLOOD COUNT W/O DIFF 14.4 K/uL (4.2-12.2)
[2018-12-12 14:41] LABS: BILIRUBIN,TOTAL 1.5 mg/dL (0.2-1.0); CREATININE 2.3 mg/dL (0.7-1.2)
[2018-12-12 14:42] LABS: TOTAL PROTEIN 6.3 g/dL (6.6-8.7)
[2018-12-12 14:47] LABS: ALB/GLOB RATIO 0.8 (1.1-1.8); ALBUMIN 2.8 g/dL (4.0-5.0)
--- NOTE | 2018-12-15 13:17 | RADIOLOGY REPORT ---
EXAM: PORTABLE CHEST HISTORY: DIFFICULTY BREATHING. TECHNIQUE: Two portable AP views of the chest were obtained. Comparison: 03/04/16. FINDINGS: The heart is normal in size. There is calcification of the aorta. The mediastinum and pulmonary vasculature are normal. The lungs are hyperinflated consistent with COPD. There are small bilateral pleural effusions, right greater than left. There is minor bibasilar atelectasis or infiltrate. The upper lung moss are clear. There is no pneumothorax. The bones are osteopenic, but appear intact. IMPRESSION: 1. COPD. 2. SMALL BILATERAL PLEURAL EFFUSIONS, RIGHT GREATER THAN LEFT WITH MINOR BIBASILAR ATELECTASIS OR INFILTRATE. JOB NUMBER: [id number] [facility]
== END 2018-12-12 15:23 | disposition home or self-care (01) ==
LOC: ER 12:52
DX: F03.90 Unspecified dementia, unspecified severity, without behavioral disturbance, psychotic disturbance, mood disturbance, and anxiety (principal); R53.1 Weakness; I48.91 Unspecified atrial fibrillation; Z87.891 Personal history of nicotine dependence
CPT/HCPCS: 71045; 80053; 85027; 93005; 93010; 99284